=== PATIENT | male | born 1955 | race African-American/Black ===

== ENCOUNTER 2017-01-06 16:05 | Emergency (ER) | payer SELFPAY ==
[2017-01-06 16:10] VITALS: TEMP 98.5; BMI 27.2
[2017-01-06] MEDS ORDERED: methylPREDNISolone NA SUCC 125 MG/2 ML VIAL IVPB ONE (16:33)
[2017-01-06] MEDS ORDERED: SODIUM CHLORIDE 1,000 ML IV ONE (16:33)
[2017-01-06] MEDS ORDERED: diphenhydrAMINE HCL 25 MG CAPSULE (FP) PO ONE ×2 (16:33→16:53)
[2017-01-06] MEDS ORDERED: FAMOTIDINE 20 MG/50 ML IVPB 50 ML IVPB ONE ×2 (16:33→16:53)
--- NOTE | 2017-01-06 16:34 | PDOC ---
History of Present Illness - General Chief Complaint: Edema Stated Complaint: ALLERGIC REACTION Time Seen by Provider: 01/06/17 16:24 History Source: Patient Exam Limitations: No Limitations - History of Present Illness Initial Comments: 01/06/17 16:34 61y M hx of htn, hl, on lisinopril presents with angioedema to th upper lip. The pt states that he was at work and had some goat soup around 10am started to feel tingling in his lips, he took 2 benadryl around 11am but the swelling has not improved. The pt denies any sob, n/v, cp, abd pain, palpitations, voice changes. The pt states that he waqs formerly on a HTN med, the last time he was here, he was told not to take it anymore -he stopped, but 1 month ago, he was started on lisinopril. The pt states he has no other known exposures today. Last time he took lisinopril was last night. Past History - Past Medical History Allergies/Adverse Reactions: Allergies Allergy/AdvReac Type Severity Reaction Status Date / Time No Known Drug Allergies Allergy Verified 01/06/17 16:10 nuts Allergy Uncoded 04/18/15 10:02 Home Medications: Ambulatory Orders Amlodipine Besylate [Norvasc -] 10 mg PO DAILY 11/15/13 Metformin HCl [Metformin HCl ER] 1,000 mg PO BID 01/06/17 Prednisone [Deltasone -] 40 mg PO DAILY #8 tablet 01/06/17 Diabetes: Yes HTN: Yes - Immunization History Immunization Up to Date: Yes - Psycho/Social/Smoking Cessation Hx Anxiety: No Suicidal Ideation: No Smoking Status: No Smoking History: Never smoked Number of Cigarettes Smoked Daily: 0 Hx Alcohol Use: No Drug/Substance Use Hx: No Substance Use Type: None Review of Systems - Review of Systems Able to Perform ROS?: Yes Comments:: 01/06/17 16:40 Constitutional - no reported Fever, Chills, weakness, HEENT: +lip swelling no reported vision changes, sore throat Respiratory: no reported cough, sob, hemoptysis Cardiac: no reported chest pain, palpitations, light headedness, leg swelling Abd/GI: no reported abd pain, nausea, vomiting, blood per rectum, melena, diarrhea : no reported dysuria, frequency, discharge Musculskelatal - no reported back pain, joint swelling skin - no reported bruising, erythema, rash neurological: no reported headache, numbness, focal weakness, tingling, ataxia, weakness hematologic: no reported anemia, easy bruising, easy bleeding *Physical Exam - Vital Signs Last Vital Signs Temp Pulse Resp BP Pulse Ox 98.5 F 124 H 20 158/107 97 01/06/17 16:06 01/06/17 16:06 01/06/17 16:06 01/06/17 16:06 01/06/17 16:06 - Physical Exam Comments: 01/07/17 02:34 GENERAL: The patient is awake, alert, and fully oriented, Nontoxic - in no acute distress. HEAD: Normocephalic, atraumatic. EYES: extraocular movements intact, sclera anicteric, conjunctiva clear. ENT: Normal voice, Moist mucous membranes. angioedema of the upper lip, posterior pharynx patent, uvula visible, no stridor NECK: Normal range of motion, supple LUNGS: Breath sounds equal, clear to auscultation bilaterally. No wheezes, no rhonchi, no rales. HEART: Regular rate and rhythm, normal S1 and S2 without murmur, rub or gallop. ABDOMEN: Soft, nontender, normoactive bowel sounds. No guarding, no rebound. No CVA tenderness EXTREMITIES: Normal range of motion, no edema. No clubbing or cyanosis. No cords, erythema, or tenderness. NEUROLOGICAL: No facial assymetry, Normal speech, moving all 4 extremities spontaneously and symmetrically PSYCH: Normal mood, normal affect. SKIN: Warm, Dry, normal turgor, Medical Decision Making - Medical Decision Making 01/06/17 16:40 61y M htn, dm, presents with angioedema of the upper lip - no associated involvement of the posterior pharynx, no other systems involved, pt noted to be tachy to 120s in triage. suspect possible janee-i side effect will have pt d/c janee-i will give benadryl/soludrol/pepcid will give fluids for hydration wlil raesses vitals and observe the pt for worsening for a few hrs *DC/Admit/Observation/Transfer Diagnosis at time of Disposition: Angio-edema Qualifiers: Encounter type: initial encounter Qualified Code(s): T78.3XXA - Angioneurotic edema, initial encounter - Discharge Dispostion Admit: No - Prescriptions Prescriptions: Prednisone [Deltasone -] 40 mg PO DAILY #8 tablet - Referrals Referrals: Ludivina Gonzales MD [Staff Physician] - Harry Veliz MD [Staff Physician] - - Patient Instructions Printed Discharge Instructions: DI for Angioedema Additional Instructions: Stop taking your Lisinopril. We suspect your angeoedema/swelling is caused by JANEE-Inhibitor class of high blood pressure medications. Please tell your doctor to consider a new antihypertensive medication. Follow up with allergy for reevaluation of your edema. Print Language: NICARAGU[place]
[2017-01-06] MEDS ORDERED: methylPREDNISolone NA SUCC 125 MG/2 ML VIAL ONE (16:53)
[2017-01-06 19:20] VITALS: BP 163/107; PULSE 102
== END 2017-01-06 19:10 | disposition short-term general hospital (02) ==
LOC: JER 16:05
PROC: 3E033GC Introduction of Other Therapeutic Substance into Peripheral Vein, Percutaneous Approach (ICD-10-PCS; principal; 2017-01-06)
PROC: 3E0337Z Introduction of Electrolytic and Water Balance Substance into Peripheral Vein, Percutaneous Approach (ICD-10-PCS; 2017-01-06)
DX: T78.3XXA Angioneurotic edema, initial encounter (principal); I10 Essential (primary) hypertension; E11.9 Type 2 diabetes mellitus without complications; Z79.84 Long term (current) use of oral hypoglycemic drugs
CPT/HCPCS: 99283-25

== ENCOUNTER 2021-12-30 10:06 | Emergency (ER) | payer OTHER ==
[2021-12-30 10:27] VITALS: TEMP 98.2; BMI 27.2
[2021-12-30] MEDS ORDERED: ACETAMINOPHEN 325 MG TABLET (FP) PO ONE (11:30)
[2021-12-30] MEDS ORDERED: MAG HYDROX/AL HYDROX/SIMETH 30 ML UNIT-DOSE CUP PO ONE (11:30)
[2021-12-30] MEDS ORDERED: FAMOTIDINE 20 MG/50 ML IVPB 20 MG/50 ML MG IVPB ONE ×2 (11:30→11:43)
[2021-12-30] MEDS ORDERED: MAG HYDROX/AL HYDROX/SIMETH 30 ML UNIT-DOSE CUP ONE (11:42)
[2021-12-30] MEDS ORDERED: ACETAMINOPHEN 325 MG TABLET (FP) ONE (11:42)
[2021-12-30 12:08] LABS: BASO % 0.7 % (0-2.0); EOS % 1.1 % (0-4.5); HEMATOCRIT 40.6 % (35.4-49); HEMOGLOBIN 13.5 GM/dL (11.7-16.9); LYMPH % 32.9 % (8-40); MCH 29.8 pg (25.7-33.7); MCHC 33.2 g/dl (32.0-35.9); MEAN CELL VOLUME 89.5 fl (80-96); MEAN PLT VOLUME 8.9 fl (7.5-11.1); NEUT % 58.3 % (42.8-82.8); PLATELET COUNT 200 10^3/uL (134-434); RBC 4.53 M/mm3 (4.00-5.60); RDW 13.9 % (11.9-15.9); WHITE BLOOD COUNT 3.8 K/mm3 (4.0-10.0)
[2021-12-30 12:13] LABS: INR 1.41 (0.83-1.09); PROTHROMBIN TIME (PATIENT) 16.3 SEC (9.7-13.0)
[2021-12-30 12:16] LABS: ACTIVATED PTT 35.3 SECONDS (25.2-36.5)
[2021-12-30 12:27] LABS: CALCIUM 10.1 mg/dL (8.5-10.1)
[2021-12-30 12:28] LABS: ALBUMIN 3.9 g/dl (3.4-5.0); BLOOD UREA NITROGEN 10.8 mg/dL (7-18); MAGNESIUM 2.1 mg/dL (1.8-2.4)
[2021-12-30 12:31] LABS: CREATININE 1.1 mg/dL (0.55-1.3)
[2021-12-30 12:33] LABS: BILIRUBIN,TOTAL 0.4 mg/dL (0.2-1); TOT PROT 8.1 g/dl (6.4-8.2)
[2021-12-30 13:33] LABS: PH,URINE 7.5 (5.0-8.0); URINE APPEARANCE CLEAR; URINE BILIRUBIN NEGATIVE (NEGATIVE); URINE COLOR YELLOW; URINE GLUCOSE (UA) NEGATIVE (NEGATIVE); URINE KETONE NEGATIVE (NEGATIVE); URINE LEUK ESTERASE NEGATIVE (NEGATIVE); URINE NITRITE NEGATIVE (NEGATIVE); URINE PROTEIN NEGATIVE (NEGATIVE); URINE UROBILINOGEN 0.2 mg/dL (0.2-1.0)
[2021-12-30 16:08] VITALS: BP 176/103; PULSE 69
== END 2021-12-30 16:10 | disposition home or self-care (01) ==
LOC: JER 10:06
PROC: 3E033GC Introduction of Other Therapeutic Substance into Peripheral Vein, Percutaneous Approach (ICD-10-PCS; principal; 2021-12-30)
DX: R07.9 Chest pain, unspecified (principal)
CPT/HCPCS: 36415; 71045-TC-FY; 80053; 81003; 83735; 84484; 85025; 85610; 85730; 87086; 93005; 93010; 99285-25; C9803-CS; U0003; U0005